=== PATIENT | female | born 2005 | race Caucasian/White ===

== ENCOUNTER 2025-01-14 13:35 | Emergency (ER) | payer MEDICAID ==
[~2025-01-14] VITALS: Ht 162.6 cm; Wt 66.0 kg
[2025-01-14 13:43] VITALS: O2SAT 100
[2025-01-14 14:32] LABS: COLOR URINE YELLOW (YELLOW); GLUCOSE URINE NEGATIVE (NEGATIVE); KETONES URINE NEGATIVE (NEGATIVE); LEUKOCYTE ESTERASE URINE 2+ (NEGATIVE); NITRITE URINE NEGATIVE (NEGATIVE); OCCULT BLOOD URINE 2+ (NEGATIVE); PH URINE 6.5 (4.5-8.0); PROTEIN URINE NEGATIVE (NEGATIVE); SPECIFIC GRAVITY URINE 1.020 (1.005-1.030); UROBILINOGEN URINE 0.2 E.U./dL (0.2-1.0)
[2025-01-14 16:08] LABS: BASOPHILS % 0.3 % (0.0-2.0); EOSINOPHILS % 0.3 % (0.0-5.0); HEMATOCRIT. 40.6 % (36.0-48.0); HEMOGLOBIN. 13.8 g/dL (12.0-16.0); LYMPHOCYTES % 16.2 % (20.0-50.0); MEAN PLATELET VOLUME 8.1 fl (7.4-10.4); MONOCYTES % 6.1 % (2.0-8.0); NEUTROPHILS % 77.1 % (40.0-76.0); PLATELET 243 x1000/uL (130-400); RED BLOOD CELL COUNT 4.44 mill/uL (4.2-5.4); RED CELL DISTRIBUTION WIDTH 11.9 % (11.6-14.6)
[2025-01-14 16:21] LABS: CREATININE 0.7 mg/dL (0.6-1.0); UREA NITROGEN BLOOD 8 mg/dL (9-23)
[2025-01-14 16:22] LABS: ASPARTATE AMINOTRANSFERASE 22 IU/L (<34); BILIRUBIN DIRECT 0.2 mg/dL (<=3.0); BILIRUBIN TOTAL 0.7 mg/dL (0.1-1.0); PROTEIN TOTAL 7.1 g/dL (6.0-8.3)
[2025-01-14 16:34] LABS: HCG SCREEN NEGATIVE
[2025-01-14 16:34] LABS: CLARITY URINE HAZY (CLEAR)
[2025-01-14 16:35] LABS: BACTERIA URINE TRACE; RBC URINE 0-2 /hpf (0-2); SQUAMOUS EPITHELIAL CELL URINE 2+ /lpf (RARE/1+)
[2025-01-14] MEDS: IBUPROFEN 600MG TABLET PO ONE (16:55)
[2025-01-14] MEDS ORDERED: CEFP200T14 MT (18:42)
[2025-01-14] MEDS ORDERED: IBUP-1455 MT (18:42)
[2025-01-14 19:02] VITALS: BP 132/76; PULSE 62; RESP 18; TEMP 36.8; O2SAT 100
== END 2025-01-14 19:02 | disposition home or self-care (01) ==
LOC: ER 13:35
DX: N83.209 Unspecified ovarian cyst, unspecified side (principal)
CPT/HCPCS: 36415; 76830; 76856; 80048; 80076; 81003; 81025; 84703; 85025; 99284